=== PATIENT | male | born 1955 | race African-American/Black ===

== ENCOUNTER 2017-01-22 02:50 | Emergency (ER) | payer OTHER ==
[~2017-01-22] VITALS: Ht 188 cm; Wt 87.0 kg
[~2017-01-22 02:50] MED LIST: NO HOME MEDS; NYSTATIN100000 M3 EX; PENICILLN VK500 M1 OR; ROCEPHIN 2250 MG/VIA IM; ULTRAM50 MG OR; ZITHROMAX500 MG PO
[2017-01-22 03:27] LABS: HEMATOCRIT 40.7 % (39.0-50.0); HEMOGLOBIN 13.6 g/dl (14.0-18.0); IMMATURE GRANULOCYTES 0.3 % (0.0-1.0); MEAN CELL VOLUME 91.7 fL CALC (80.0-100.0); MEAN CORPUSCULAR HGB 30.6 pG CALC (26.0-32.0); MEAN CORPUSCULAR HGB CONC 33.4 g/L CALC (32.0-36.0); NEUT# 3.41 thou/uL (1.82-7.42); RED BLOOD COUNT 4.44 mill/uL (4.70-6.10); RED CELL DISTRI WIDTH 14.3 % (11.5-15.5)
[2017-01-22 03:40] LABS: ALKALINE PHOSPHATASE 67 u/l (38-126); ANION GAP 12 (6-22 (CALC)); BILIRUBIN, TOTAL 0.3 mg/dL (0.0-1.4); BUN 17 mg/dL (9-20); BUN/CREATININE RATIO 17 (12-20 (CALC)); CALCIUM 8.6 mg/dL (8.4-10.2); CARBON DIOXIDE 24 mmol/l (22-30); CHLORIDE 111 mmol/l (95-108); GFR > 60 ML/MIN (>=60 (CALC)); GFR FOR AFR.AMER. > 60 ML/MIN (>=60 (CALC)); GLUCOSE 88 mg/dL (75-110); POTASSIUM 3.6 mmol/l (3.5-5.1); SGOT/AST 22 u/l (17-59); SGPT/ALT 31 u/l (21-72); SODIUM 143 mmol/l (137-146); TOTAL PROTEIN 7.1 g/dL (6.3-8.2)
[2017-01-22 03:41] LABS: ACT PARTIAL THROMBO TIME 26.6 SECONDS (20.0-32.5); PROTHROMBIN TIME 11.4 SECONDS (9.0-12.5)
[2017-01-22 03:42] LABS: ETHYL ALCOHOL < 10 mg/dl (0-30)
[2017-01-22 03:52] LABS: MYOGLOBIN 37 ng/mL (0 - 121)
[2017-01-22 04:15] VITALS: BP 139/84
== END 2017-01-22 04:20 | disposition short-term general hospital (02) | DRG 65 ==
LOC: ED 02:50
PROVIDERS: Emergency Medicine
DX: I63.9 Cerebral infarction, unspecified (principal); G81.94 Hemiplegia, unspecified affecting left nondominant side; R29.810 Facial weakness; R47.81 Slurred speech; R29.705 NIHSS score 5; Z72.0 Tobacco use; Z72.89 Other problems related to lifestyle

== ENCOUNTER 2017-03-13 21:46 | Emergency (ER) | payer OTHER ==
[~2017-03-13] VITALS: Ht 188 cm; Wt 82.0 kg
[2017-03-13 22:49] LABS: HEMOGLOBIN 10.9 g/dl (14.0-18.0); IMMATURE GRANULOCYTES 0.2 % (0.0-1.0); MEAN CELL VOLUME 91.4 fL CALC (80.0-100.0); MEAN CORPUSCULAR HGB 30.2 pG CALC (26.0-32.0); NEUT# 3.52 thou/uL (1.82-7.42); RED BLOOD COUNT 3.61 mill/uL (4.70-6.10); RED CELL DISTRI WIDTH 13.5 % (11.5-15.5)
[2017-03-13 23:15] LABS: ALBUMIN 4.1 g/dL (3.2-5.0); ALKALINE PHOSPHATASE 91 u/l (38-126); ANION GAP 14 (6-22 (CALC)); BILIRUBIN, TOTAL 0.5 mg/dL (0.0-1.4); BUN 18 mg/dL (9-20); BUN/CREATININE RATIO 17 (12-20 (CALC)); CALCIUM 9.1 mg/dL (8.4-10.2); CARBON DIOXIDE 27 mmol/l (22-30); CHLORIDE 104 mmol/l (95-108); CREATININE 1.1 mg/dL (0.7-1.3); GFR > 60 ML/MIN (>=60 (CALC)); GFR FOR AFR.AMER. > 60 ML/MIN (>=60 (CALC)); GLUCOSE 110 mg/dL (75-110); POTASSIUM 3.8 mmol/l (3.5-5.1); SGOT/AST 27 u/l (17-59); SGPT/ALT 41 u/l (21-72); SODIUM 142 mmol/l (137-146); TOTAL PROTEIN 7.3 g/dL (6.3-8.2)
[2017-03-13 23:21] LABS: INTERNATIONAL NORMALIZED RATIO 1.2 RATIO (0.7-1.3); PROTHROMBIN TIME 12.7 SECONDS (9.0-12.5)
[2017-03-13 23:27] LABS: MYOGLOBIN 28 ng/mL (0 - 121)
[2017-03-13] MEDS ORDERED: LISINOPRIL2.5 MG PO (23:35)
[2017-03-13] MEDS ORDERED: PRAVASTATIN SOD20 MG PO (23:38)
[2017-03-13] MEDS ORDERED: ELIQUIS5 MG PO (23:38)
[2017-03-13] MEDS ORDERED: DIPYRIDAMOLE25 MG PO (23:39)
[2017-03-13] MEDS ORDERED: ATORVASTATIN CA40 MG PO (23:39)
[2017-03-14 01:33] VITALS: BP 110/77
== END 2017-03-14 01:10 | disposition left against medical advice (07) | DRG 176 ==
LOC: ED 21:46
PROVIDERS: Emergency Medicine
DX: I26.99 Other pulmonary embolism without acute cor pulmonale (principal); R04.2 Hemoptysis; R91.8 Other nonspecific abnormal finding of lung field; R74.8 Abnormal levels of other serum enzymes; E78.5 Hyperlipidemia, unspecified; I25.10 Atherosclerotic heart disease of native coronary artery without angina pectoris; Z86.73 Personal history of transient ischemic attack (TIA), and cerebral infarction without residual deficits; Z91.19 Patient's noncompliance with other medical treatment and regimen

== ENCOUNTER 2017-03-22 09:24 | Emergency (ER) | payer OTHER ==
[~2017-03-22] VITALS: Ht 188 cm; Wt 180.0 kg
[~2017-03-22 09:24] MED LIST changes: +ATORVASTATIN CA40 MG PO; +DIPYRIDAMOLE25 MG PO; +ELIQUIS5 MG PO; +LISINOPRIL2.5 MG PO; +PRAVASTATIN SOD20 MG PO
[2017-03-22 09:54] LABS: HEMATOCRIT 32.8 % (39.0-50.0); HEMOGLOBIN 10.9 g/dl (14.0-18.0); IMMATURE GRANULOCYTES 0.3 % (0.0-1.0); MEAN CELL VOLUME 89.6 fL CALC (80.0-100.0); MEAN CORPUSCULAR HGB 29.8 pG CALC (26.0-32.0); MEAN CORPUSCULAR HGB CONC 33.2 g/L CALC (32.0-36.0); NEUT# 4.51 thou/uL (1.82-7.42); RED BLOOD COUNT 3.66 mill/uL (4.70-6.10); RED CELL DISTRI WIDTH 13.2 % (11.5-15.5)
[2017-03-22 09:56] LABS: ALBUMIN 4.3 g/dL (3.2-5.0); ALKALINE PHOSPHATASE 118 u/l (38-126); ANION GAP 14 (6-22 (CALC)); BILIRUBIN, TOTAL 0.7 mg/dL (0.0-1.4); BUN 12 mg/dL (9-20); BUN/CREATININE RATIO 11 (12-20 (CALC)); CALCIUM 9.1 mg/dL (8.4-10.2); CARBON DIOXIDE 28 mmol/l (22-30); CHLORIDE 105 mmol/l (95-108); CREATININE 1.1 mg/dL (0.7-1.3); GFR > 60 ML/MIN (>=60 (CALC)); GFR FOR AFR.AMER. > 60 ML/MIN (>=60 (CALC)); GLUCOSE 97 mg/dL (75-110); POTASSIUM 3.8 mmol/l (3.5-5.1); SGOT/AST 40 u/l (17-59); SGPT/ALT 57 u/l (21-72); SODIUM 143 mmol/l (137-146); TOTAL PROTEIN 7.7 g/dL (6.3-8.2)
[2017-03-22 10:08] LABS: MYOGLOBIN 39 ng/mL (0 - 121)
[2017-03-22 18:08] VITALS: BP 117/77
== END 2017-03-22 17:30 | disposition short-term general hospital (02) | DRG 91 ==
LOC: ED 09:24
PROVIDERS: Emergency Medicine
DX: R47.01 Aphasia (principal); I63.9 Cerebral infarction, unspecified; R53.1 Weakness; R29.810 Facial weakness; R47.1 Dysarthria and anarthria; E78.5 Hyperlipidemia, unspecified; Z86.73 Personal history of transient ischemic attack (TIA), and cerebral infarction without residual deficits

== ENCOUNTER 2017-04-13 07:20 | Emergency (ER) | payer OTHER ==
[~2017-04-13] VITALS: Ht 188 cm; Wt 98.0 kg
[2017-04-13 07:50] LABS: HEMATOCRIT 30.4 % (39.0-50.0); HEMOGLOBIN 10.1 g/dl (14.0-18.0); IMMATURE GRANULOCYTES 0.2 % (0.0-1.0); MEAN CELL VOLUME 88.1 fL CALC (80.0-100.0); MEAN CORPUSCULAR HGB 29.3 pG CALC (26.0-32.0); MEAN CORPUSCULAR HGB CONC 33.2 g/L CALC (32.0-36.0); NEUT# 5.64 thou/uL (1.82-7.42); RED BLOOD COUNT 3.45 mill/uL (4.70-6.10)
[2017-04-13] MEDS ORDERED: WARFARIN2.5 MG PO (07:51)
[2017-04-13 08:07] LABS: INTERNATIONAL NORMALIZED RATIO 1.2 RATIO (0.7-1.3); PROTHROMBIN TIME 13.5 SECONDS (9.0-12.5)
[2017-04-13 08:09] LABS: ALBUMIN 3.9 g/dL (3.2-5.0); ALKALINE PHOSPHATASE 122 u/l (38-126); ANION GAP 16 (6-22 (CALC)); BILIRUBIN, TOTAL 0.5 mg/dL (0.0-1.4); BUN 13 mg/dL (9-20); BUN/CREATININE RATIO 14 (12-20 (CALC)); CARBON DIOXIDE 27 mmol/l (22-30); CHLORIDE 105 mmol/l (95-108); CREATININE 0.9 mg/dL (0.7-1.3); GFR > 60 ML/MIN (>=60 (CALC)); GFR FOR AFR.AMER. > 60 ML/MIN (>=60 (CALC)); GLUCOSE 108 mg/dL (75-110); POTASSIUM 3.7 mmol/l (3.5-5.1); SGOT/AST 38 u/l (17-59); SGPT/ALT 76 u/l (21-72); SODIUM 144 mmol/l (137-146); TOTAL PROTEIN 7.4 g/dL (6.3-8.2)
[2017-04-13 08:21] LABS: MYOGLOBIN 51 ng/mL (0 - 121)
[2017-04-13 08:38] LABS: URINE BILIRUBIN - DIPSTICK NEGATIVE (NEGATIVE); URINE BLOOD DIPSTICK NEGATIVE (NEGATIVE); URINE CLARITY CLEAR; URINE COLOR YELLOW; URINE GLUCOSE - DIPSTICK NEGATIVE (NEGATIVE); URINE KETONE NEGATIVE (NEGATIVE); URINE LEUK ESTERASE NEGATIVE (NEGATIVE); URINE NITRITE - DIPSTICK NEGATIVE (Negative); URINE PROTEIN - DIPSTICK NEGATIVE (NEG-TRACE)
[2017-04-13 10:45] VITALS: BP 119/74
== END 2017-04-13 10:45 | disposition short-term general hospital (02) | DRG 66 ==
LOC: ED 07:20
PROVIDERS: Emergency Medicine
DX: I63.9 Cerebral infarction, unspecified (principal); R29.810 Facial weakness; R47.81 Slurred speech; R29.704 NIHSS score 4; Z79.01 Long term (current) use of anticoagulants; Z86.73 Personal history of transient ischemic attack (TIA), and cerebral infarction without residual deficits; R79.89 Other specified abnormal findings of blood chemistry

== ENCOUNTER 2017-05-15 12:27 | Emergency (ER) | payer OTHER ==
[~2017-05-15] VITALS: Ht 188 cm; Wt 77.0 kg
[~2017-05-15 12:27] MED LIST changes: +WARFARIN2.5 MG PO
[2017-05-15] MEDS ORDERED: ELIQUIS5 MG PO (12:52)
[2017-05-15] MEDS ORDERED: HYCODAN1 ML PO (12:55)
[2017-05-15] MEDS ORDERED: PANTOPRAZOLE SO40 MG PO (12:56)
[2017-05-15 13:22] LABS: HEMATOCRIT 26.6 % (39.0-50.0); HEMOGLOBIN 8.6 g/dl (14.0-18.0); IMMATURE GRANULOCYTES 0.4 % (0.0-1.0); MEAN CELL VOLUME 86.4 fL CALC (80.0-100.0); MEAN CORPUSCULAR HGB 27.9 pG CALC (26.0-32.0); MEAN CORPUSCULAR HGB CONC 32.3 g/L CALC (32.0-36.0); NEUT# 8.16 thou/uL (1.82-7.42); RED BLOOD COUNT 3.08 mill/uL (4.70-6.10); RED CELL DISTRI WIDTH 13.7 % (11.5-15.5)
[2017-05-15 13:43] LABS: INTERNATIONAL NORMALIZED RATIO 1.4 RATIO (0.7-1.3); PROTHROMBIN TIME 15.7 SECONDS (9.0-12.5)
[2017-05-15 13:47] LABS: ANION GAP 15 (6-22 (CALC)); BUN 25 mg/dL (9-20); BUN/CREATININE RATIO 26 (12-20 (CALC)); CALCIUM 9.5 mg/dL (8.4-10.2); CARBON DIOXIDE 27 mmol/l (22-30); CHLORIDE 103 mmol/l (95-108); GFR > 60 ML/MIN (>=60 (CALC)); GFR FOR AFR.AMER. > 60 ML/MIN (>=60 (CALC)); GLUCOSE 107 mg/dL (75-110); POTASSIUM 4.2 mmol/l (3.5-5.1); SODIUM 141 mmol/l (137-146)
[2017-05-15 14:58] VITALS: BP 117/77
== END 2017-05-15 14:59 | disposition short-term general hospital (02) | DRG 65 ==
LOC: ED 12:27
PROVIDERS: Family Medicine
DX: I61.9 Nontraumatic intracerebral hemorrhage, unspecified (principal); R47.01 Aphasia; C34.32 Malignant neoplasm of lower lobe, left bronchus or lung; R04.2 Hemoptysis; I10 Essential (primary) hypertension; R53.1 Weakness; R50.9 Fever, unspecified
CPT/HCPCS: J1953